=== PATIENT | female | born 1975 | race Caucasian/White ===

== ENCOUNTER 2022-10-12 15:36 | Emergency (ER) | payer OTHER, SELFPAY ==
--- NOTE | ~2022-10-12 | XR_ITS ---
Lumbosacral Spine: AP and lateral views Clinical History: Pain Findings: There is reversal of the normal lumbar lordosis. There is mild right lateral subluxation of L2 over L3, and of L3 over L4 of the AP view. Posterior fusion hardware is present from L4 through S 1, with bilateral rods and transpedicular screws present. Anterolisthesis of L3 over L4 measures appr oximately 1 cm. Minimal grade I anterolisthesis of L2 over L3 present. There is severe degenerative d isc narrowing at L2-L3 and L3-L4. The sacroiliac joints are normally outlined. Impression: Posterior fusion hardware from L4 through S1, as detailed above. 1 cm anterolisthesis of L3 over L4. Minimal grade 1 anterolisthesis of L2 over L3. Degenerative disc changes, as above. Reviewed, dictated and finalized at location [] [facility] [employer] Impression: Posterior fusion hardware from L4 through S1, as detailed above. 1 cm anterolisthesis of L3 over L4. Minimal grade 1 anterolisthesis of L2 over L3. Degenerative disc changes, as above.
[2022-10-12 15:51] VITALS: BP 98/73; PULSE 89; RESP 16; TEMP 36.6; O2SAT 98
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
== END 2022-10-12 18:00 | disposition home or self-care (01) ==
PROVIDERS: Emergency Provider Nurse Practitioner Family
DX: M54.50 Low back pain, unspecified (principal); Z86.16 Personal history of COVID-19
CPT/HCPCS: 72100; 99213; G0463